=== PATIENT | male | born 1950 | race Caucasian/White ===

== ENCOUNTER 2017-01-14 13:54 | Day surgery (SDC) | payer MEDICARE, SELFPAY ==
--- NOTE | ~2017-01-14 | OP ---
Record Of Operation [facility] [address] [place]. [address] NAME: ISABEL MOSS : 54 STATUS : [facility]#: [id number] AGE: 66 ADM/REG DATE : 01/14/17 MR#: [id number] REPORT SERV DATE: 01/24/17 DICTATED BY: BURT MCQUEEN DATE: 01/24/17 REPORT STATUS : Draft TRANSCRIBED BY: MODL DATE: 01/24/17 DATE OF PROCEDURE: 01/14/2017 POSTOPERATIVE DIAGNOSES: 1. Right equinus. 2. 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 POSTOPERATIVE DIAGNOSES: 1. Right equinus. 2. 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 PROCEDURE: 1. Right percutaneous tendo-Achilles lengthening. 2. Right full thickness ulceration debridement to the right foot distal stump down to the level of the deep fascia. SURGEON: Sim Mcqueen D.P.M. ANESTHESIA: General and local anesthetic. ESTIMATED BLOOD LOSS: Minimal. COMPLICATION: None. INJECTABLES: Approximately 10 mL of a 1:1 mixture of Xylocaine plain and 0.5% Marcaine plain. MATERIALS: Include 3-0 nylon, 0 nylon, well-padded posterior splint, and well-padded dressing. DESCRIPTION OF PROCEDURE: Under mild sedation, the patient was brought to the operating room and placed on the operating table in a prone position. This was following general anesthesia. The right foot, ankle, and lower leg were scrubbed, prepped, and draped in usual aseptic manner. Attention was directed to the procedure. Procedure #1 is right tendo-Achilles lengthening. Attention was directed to the posterior aspect of the patient's right Achilles tendon, where three small stab incisions were made in a percutaneous fashion about the right tendo-Achilles. An initial stab incision was made approximately 2 to 2.5 cm superior to the lateral aspect of the Achilles tendon insertion. Blunt dissection was continued down at the level of the tendon with a blunt Ragnell retraction and an 11 blade was then inserted into the Achilles tendon releasing approximately 50% of the lateral aspect of the Achilles tendon. The next stab incision was made 2 to 3 cm above the inferior incision on the medial aspect of the Achilles tendon. Blunt dissection was continued down to the level of the Achilles tendon. Approximately 50% of the tendon was released from the medial aspect. The third stab incision was made again 2 to 3 cm above the central incision on the lateral aspect. Blunt dissection was continued Record Of Operation [facility] [address] [place]. [address] NAME: ISABEL MOSS : 54 STATUS : [facility] [place], [place] PAT#: [id number] AGE: 66 ADM/REG DATE : 01/14/17 MR#: [id number] REPORT SERV DATE: 01/24/17 DICTATED BY: BURT MCQUEEN DATE: 01/24/17 REPORT STATUS : Draft TRANSCRIBED BY: MODJarrell DATE: 01/24/17 down to the level of the Achilles tendon and an 11 blade was utilized to release approximately 50% of the most superior aspect of the Achilles tendon. Next, the foot was dorsiflexed with the leg extended and lengthening of the Achilles tendon ensued. Copious irrigation ensued. The incision site was reapproximated and coapted using 3-0 nylon. Attention was directed to the next procedure. The next procedure is right full thickness ulceration debridement extending to the deep fascia to the right foot distal stump chronic ulceration. Attention now was directed to the plantar aspect of the patient's right distal stump, where the full-thickness ulceration was present. Serous drainage was appreciated. There was no purulence. There was no erythema noted. At this time, an elliptical incision was made surrounding the ulceration and sharp dissection was continued down to the level of the flexor tendons. There was again serous drainage noted and cultured. After debridement of the somewhat liquified tissue, there was no necrosis, there was no odor, there was no probing to bone that could be appreciated. Again, no purulence present. At this time, full thickness reapproximation was performed with 0 nylon in an interrupted suture technique. A well-padded sterile dressing and well-padded posterior splint was placed about the patient's right foot and ankle. The patient tolerated the procedure and anesthesia well and was transferred to recovery room with vital signs stable, and vascular status intact to all toes. Following a period of postoperative monitoring, the patient will be discharged home with the following written and oral postoperative instructions: 1. Keep dressings clean, dry, and intact. 2. Strict nonweightbearing at all times. 3. Take medications as instructed and he will follow up with Dr. Mcqueen in 7 to 14 days. ALECIA/DEEDEEL Sim Mcqueen D.P.M. / [id number] CC: Kana Barriga D.O.
[~2017-01-14 13:54] MED LIST: ASA5GR PO; ASAB PO; BACDS PO; C5 PO; COREG6 PO; COUMADIN10 MG PO; COUMADIN7.5 MG PO; ENDOCET1 TA3 PO; FISH-EPA1000 MG PO; FLEX PO; GLUCOPHAGE1000 MG PO; HALF81 PO; HEMOCYTE324 MG PO; INSULIN NOVALOG; IRON PO; IRON160 MG PO; K500 PO; KLOR-CON M2020 MEQ; L40 PO; LANTUS SC; LIPITOR10 PO; LIPITOR20 PO; MAGONATE PO; MAGOX4 PO; MULTIPLE VIT PO; MULTIVIT/MIN PO; MVI; NIACIN 500 PO; NIACOR500 MG PO; NIASPAN500 PO; NOR10 PO; NORV25 PO; NORV5 PO; NOVOLOG SC; PRILO PO; PRIN10 PO; PRIN20 PO; VITAMIN D1000 UNI1 PO; ZESTRIL10 MG PO; ZESTRIL20 MG PO; ZOCOR10 PO; ZOCOR20 PO; ZOCOR40 PO; ZOCOR5 MG PO; ZYVOXPO PO
[2017-01-14 14:45] LABS: INTERNATIONAL NORMAL RATI 1.3 UNITS (-); PROTIME (NOT ORD) 16.1 SEC (12.0-14.5)
== END 2017-01-14 19:55 | disposition home or self-care (01) ==
LOC: SDC 13:54
PROVIDERS: Podiatrist Foot & Ankle Surgery
PROC: 0L8V0ZZ Division of Right Foot Tendon, Open Approach (ICD-10-PCS; principal; 2017-01-14 15:15)
PROC: 0JBQ0ZZ Excision of Right Foot Subcutaneous Tissue and Fascia, Open Approach (ICD-10-PCS; 2017-01-14 15:15)
DX: M86.171 Other acute osteomyelitis, right ankle and foot (principal); I10 Essential (primary) hypertension; L97.519 Non-pressure chronic ulcer of other part of right foot with unspecified severity; I25.10 Atherosclerotic heart disease of native coronary artery without angina pectoris; I25.2 Old myocardial infarction; Z95.1 Presence of aortocoronary bypass graft; E11.9 Type 2 diabetes mellitus without complications; G62.9 Polyneuropathy, unspecified; E78.00 Pure hypercholesterolemia, unspecified; K21.9 Gastro-esophageal reflux disease without esophagitis; I48.91 Unspecified atrial fibrillation; I73.9 Peripheral vascular disease, unspecified; G47.30 Sleep apnea, unspecified; Z99.81 Dependence on supplemental oxygen; Z90.49 Acquired absence of other specified parts of digestive tract
CPT/HCPCS: 80048; 82962; 85014; 85018; 85610; 87015; 87070; 87075; 87077; 87102; 87116; 87186; 87205; 88307; 88311; 93005; J0690; J2250; J2370; J2405; J2710; J3010